=== PATIENT | male | born 1980 | race Caucasian/White ===

== ENCOUNTER 2017-01-15 14:58 | Emergency (ER) | payer OTHER ==
--- NOTE | 2017-01-15 15:05 | PDOC ---
History of Present Illness - General History Source: Patient Exam Limitations: No Limitations - History of Present Illness Initial Comments: 01/15/17 15:15 The patient is a 36 year old male, with no significant past medical history who presents to the emergency department with persistent cough for about 2 weeks. The patient reports his cough is nonproductive not bringing up any fluid or sputum. He denies any history of asthma. He denies any recent sick contacts or recent travel. He denies any recent fevers, chills, headache or dizziness. He denies any recent nausea, vomit, diarrhea or constipation. He denies any recent chest pain or shortness of breath. He denies any recent dysuria, frequency, urgency or hematuria. Allergies: NKA Past surgical history: None reported. Social History: Nonsmoker. Denies EtOH use and recreational drug use. <Oscar Neil - Last Filed: 01/15/17 15:16> <Sammy Solitario - Last Filed: 01/15/17 15:22> - General Chief Complaint: Respiratory Stated Complaint: PERSISTANT COUGH Time Seen by Provider: 01/15/17 15:04 Past History <Oscar Neil - Last Filed: 01/15/17 15:16> - Suicide/Smoking/Psychosocial Hx Smoking History: Never smoked Hx Alcohol Use: Yes (occasional) <Sammy Solitario - Last Filed: 01/15/17 15:22> - Past Medical History Allergies/Adverse Reactions: Allergies Allergy/AdvReac Type Severity Reaction Status Date / Time No Known Allergies Allergy Verified 01/15/17 15:00 Home Medications: Ambulatory Orders Azithromycin [Zithromax -] 250 mg PO UTDICT #6 tab 01/15/17 Prednisone [Deltasone -] 20 mg PO BID #10 tablet 01/15/17 Review of Systems - Review of Systems Able to Perform ROS?: Yes Comments:: 01/15/17 15:05 GENERAL/CONSTITUTIONAL: No fever or chills. No weakness. HEAD, EYES, EARS, NOSE AND THROAT: No change in vision. No ear pain or discharge. No sore throat. CARDIOVASCULAR: No chest pain or shortness of breath. RESPIRATORY: +cough No wheezing, or hemoptysis. GASTROINTESTINAL: No nausea, vomiting, diarrhea or constipation. GENITOURINARY: No dysuria, frequency, or change in urination. MUSCULOSKELETAL: No joint or muscle swelling or pain. No neck or back pain. SKIN: No rash NEUROLOGIC: No headache, vertigo, loss of consciousness, or change in strength/ sensation. ENDOCRINE: No increased thirst. No abnormal weight change. HEMATOLOGIC/LYMPHATIC: No anemia, easy bleeding, or history of blood clots. ALLERGIC/IMMUNOLOGIC: No hives or skin allergy. <Oscar Neil - Last Filed: 01/15/17 15:16> *Physical Exam - Physical Exam Comments: 01/15/17 15:16 GENERAL: Awake, alert, and fully oriented, in no acute distress HEAD: No signs of trauma EYES: PERRLA, EOMI, sclera anicteric, conjunctiva clear ENT: Auricles normal inspection, hearing grossly normal, nares patent, oropharynx clear without exudates. Moist mucosa NECK: Normal ROM, supple, no lymphadenopathy, JVD, or masses LUNGS: Breath sounds equal, clear to auscultation bilaterally. No wheezes, and no crackles HEART: Regular rate and rhythm, normal S1 and S2, no murmurs, rubs or gallops ABDOMEN: Soft, nontender, normoactive bowel sounds. No guarding, no rebound. No masses EXTREMITIES: Normal range of motion, no edema. No clubbing or cyanosis. No cords, erythema, or tenderness NEUROLOGICAL: Cranial nerves II through XII grossly intact. Normal speech, normal gait SKIN: Warm, Dry, normal turgor, no rashes or lesions noted. <Oscar Neil - Last Filed: 01/15/17 15:16> Progress Note - Progress Note Progress Note: Will treat for bronchitis/bronchospasm. Pt is in agreement with plan If worsen will return to ER <Sammy Solitario - Last Filed: 01/15/17 15:22> *DC/Admit/Observation/Transfer - Attestations Scribe Attestion: 01/15/17 15:06 Documentation prepared by Oscar Neil, acting as lpn medical assistant for Sammy Solitario MD. <Oscar Neil - Last Filed: 01/15/17 15:16> - Discharge Dispostion Admit: No <Sammy Solitario - Last Filed: 01/15/17 15:22> Diagnosis at time of Disposition: Bronchitis, Bronchospasm - Discharge Dispostion Disposition: HOME Condition at time of disposition: Stable - Patient Instructions Printed Discharge Instructions: DI for Acute Bronchitis Additional Instructions: Prednisone 20 mg 2x/day for5 days Z-pack as directed If worsen return to ER
[2017-01-15 15:09] VITALS: BP 165/96; PULSE 98; TEMP 98.8; BMI 35.4
== END 2017-01-15 15:28 | disposition home or self-care (01) ==
LOC: FER 14:58
DX: J40 Bronchitis, not specified as acute or chronic (principal); J98.01 Acute bronchospasm
CPT/HCPCS: 99281-25

== ENCOUNTER 2022-12-30 04:58 | Day surgery (SDC) | payer OTHER ==
[2022-12-28 11:10] VITALS: BMI 31.7
[2022-12-30 12:09] VITALS: BP 128/87; PULSE 61; RESP 20
[2022-12-30 12:34] VITALS: TEMP 98
== END 2022-12-30 12:09 | disposition home or self-care (01) ==
LOC: JASU-ENDO 04:58
PROVIDERS: ATTEND Internal Medicine Gastroenterology
PROC: 0DBP8ZX Excision of Rectum, Via Natural or Artificial Opening Endoscopic, Diagnostic (ICD-10-PCS; 2022-12-30)
PROC: 0DBC8ZX Excision of Ileocecal Valve, Via Natural or Artificial Opening Endoscopic, Diagnostic (ICD-10-PCS; 2022-12-30)
PROC: 0DB98ZX Excision of Duodenum, Via Natural or Artificial Opening Endoscopic, Diagnostic (ICD-10-PCS; 2022-12-30)
PROC: 0DB78ZX Excision of Stomach, Pylorus, Via Natural or Artificial Opening Endoscopic, Diagnostic (ICD-10-PCS; 2022-12-30)
PROC: 0DB68ZX Excision of Stomach, Via Natural or Artificial Opening Endoscopic, Diagnostic (ICD-10-PCS; 2022-12-30)
PROC: 0DBH8ZX Excision of Cecum, Via Natural or Artificial Opening Endoscopic, Diagnostic (ICD-10-PCS; principal; 2022-12-30 11:00)
DX: Z12.11 Encounter for screening for malignant neoplasm of colon (principal); D12.0 Benign neoplasm of cecum; D12.8 Benign neoplasm of rectum; K64.8 Other hemorrhoids; K44.9 Diaphragmatic hernia without obstruction or gangrene; K25.3 Acute gastric ulcer without hemorrhage or perforation; K29.80 Duodenitis without bleeding; K29.40 Chronic atrophic gastritis without bleeding; B96.81 Helicobacter pylori [H. pylori] as the cause of diseases classified elsewhere; I10 Essential (primary) hypertension
CPT/HCPCS: 88305-TC; 88341-TC; 88342-TC